=== PATIENT | female | born 1980 | race Caucasian/White ===

== ENCOUNTER 2019-08-10 07:23 | Day surgery (SDC) | payer BC, OTHER ==
[2019-08-10] VITALS (15 sets, daily range): BP systolic 105–143; BP diastolic 64–92; PULSE 54–76; RESP 9–23; Ht 157.5 cm; Wt 66.7 kg
[~2019-08-10] VITALS: Ht 157.5 cm; Wt 66.7 kg
[~2019-08-10 07:23] MED LIST: BUPIVACAINE 0.25% (MPF) 30 ML INJ INJ ONE; CEFAZOLIN 2 GM/50 ML (PMX) 50 ML IVPB ONE; IBUP100T33; LIDOCAINE 1% (MDV) 20 ML INJ ONE; NAPR-985 PO; SOD CHLORIDE 0.9% 1,000 ML IV SCH
[2019-08-10] MEDS ORDERED: OXYCODONE/ACETAMINOPHEN (5/325) TAB PO PRN (09:00)
[2019-08-10] MEDS ORDERED: HYDROmorphONE 1 MG/5 ML IV SYRINGE IV PRN ×3 (09:00)
[2019-08-10] MEDS ORDERED: ONDANSETRON 4 MG INJ IV PRN (09:00)
[2019-08-10] MEDS ORDERED: MIDAZOLAM 1 MG/ML 2 ML INJ ONE (09:03)
[2019-08-10] MEDS ORDERED: ROCURONIUM 50 MG INJ ONE (09:03)
[2019-08-10] MEDS ORDERED: PROPOFOL 20 ML ONE (09:03)
[2019-08-10] MEDS ORDERED: ROPIVACAINE 0.5 % 30 ML VIAL ONE (09:06)
[2019-08-10] MEDS ORDERED: ONDANSETRON 4 MG INJ ONE (09:32)
[2019-08-10] MEDS ORDERED: CEFAZOLIN 1 GM INJ ONE (09:32)
[2019-08-10] MEDS ORDERED: SUGAMMADEX SODIUM 200 MG/2 ML VIAL IV ONE (09:50)
[2019-08-10] MEDS: OXYCODONE/ACETAMINOPHEN (5/325) TAB PO PRN ×2 (10:36→12:34)
[2019-08-10] MEDS: HYDROCODONE/APAP (5/325) TAB PO ONE ×2 (12:20→12:34)
== END 2019-08-10 12:39 | disposition home or self-care (01) ==
LOC: SDS 07:23
PROVIDERS: ATTEND Surgery
DX: K80.10 Calculus of gallbladder with chronic cholecystitis without obstruction (principal)
CPT/HCPCS: 47562; J0690; J1170; J2250; J2405; J2795; J3010; Z7512; Z7610; 88304

== ENCOUNTER 2019-08-15 06:42 | Emergency (ER) | payer OTHER ==
[~2019-08-15] VITALS: Ht 157.5 cm; Wt 65.2 kg
[~2019-08-15 06:42] MED LIST changes: -BUPIVACAINE 0.25% (MPF) 30 ML INJ INJ ONE; -CEFAZOLIN 2 GM/50 ML (PMX) 50 ML IVPB ONE; -IBUP100T33; -LIDOCAINE 1% (MDV) 20 ML INJ ONE; -SOD CHLORIDE 0.9% 1,000 ML IV SCH
[2019-08-15 06:45] VITALS: BP 126/73; PULSE 71; RESP 18; Ht 157.5 cm; Wt 65.2 kg
[2019-08-15] MEDS ORDERED: SOD CHLORIDE 0.9% 100 ML ONE (08:09)
[2019-08-15] MEDS ORDERED: IOHEXOL 300MG/ML 150 ML BTL ONE (08:09)
== END 2019-08-15 09:13 | disposition home or self-care (01) ==
LOC: FTE 06:42
DX: M54.9 Dorsalgia, unspecified (principal)
CPT/HCPCS: 36415; 74177; 80053; 81003; 81025; 83690; 85025; 87086; Q9967; Z7502; Z7610